=== PATIENT | female | born 1945 ===

== ENCOUNTER 2018-12-11 09:00 | Inpatient (IN) | payer OTHER ==
[~2018-12-11] VITALS: Ht 167.6 cm; Wt 81.6 kg
[2018-12-11] MEDS ORDERED: TOPROL XL25 M1 PO (10:46)
[2018-12-11] MEDS ORDERED: FLECAINIDE ACE100 MG PO (10:47)
[2018-12-11] MEDS ORDERED: CLONAZEPAM1 MG PO (10:47)
[2018-12-11] MEDS ORDERED: CYMBALTA PO (10:48)
[2018-12-11] MEDS ORDERED: LIPITOR PO (10:48)
[2018-12-11] MEDS ORDERED: ZANTAC300 MG PO (10:49)
[2018-12-11] MEDS ORDERED: ASPIRIN81 M1 PO (10:49)
[2018-12-11] MEDS ORDERED: CATAFLAN PO (10:50)
[2018-12-11] MEDS ORDERED: TRAMADOL HCL50 MG PO (10:50)
[2018-12-15] MEDS ORDERED: ATORVASTATIN CA10 MG PO (11:18)
[2018-12-15] MEDS ORDERED: CYMBALTA30 MG PO (11:18)
[2018-12-15] MEDS ORDERED: DICLOFENAC SODI50 MG PO (11:19)
[2018-12-22] MEDS ORDERED: XARELTO10 MG PO (09:54)
[2018-12-22] MEDS ORDERED: BACTRIM DS TAB1 EACH PO (09:54)
[2018-12-22] MEDS ORDERED: OXYC1TAB9 PO (09:54)
[2018-12-22] MEDS ORDERED: INTEGRA PLUS C1 EACH PO (09:54)
== END 2018-12-22 14:22 | DRG 470 ==
LOC: SURG 12-15 05:55 → O/R 12-15 05:55 → SURG 12-15 12:37
PROVIDERS: ADMIT Orthopaedic Surgery Sports Medicine
PROC: 0SRC0J9 Replacement of Right Knee Joint with Synthetic Substitute, Cemented, Open Approach (ICD-10-PCS; principal; 2018-12-15 07:00)
PROC: 3E0F7GC Introduction of Other Therapeutic Substance into Respiratory Tract, Via Natural or Artificial Opening (ICD-10-PCS; 2018-12-18)
PROC: B54BZZZ Ultrasonography of Right Lower Extremity Veins (ICD-10-PCS; 2018-12-19)
DX: M17.11 Unilateral primary osteoarthritis, right knee (principal); J98.11 Atelectasis; R50.82 Postprocedural fever; R09.02 Hypoxemia; I49.8 Other specified cardiac arrhythmias; I10 Essential (primary) hypertension; E78.00 Pure hypercholesterolemia, unspecified; K57.30 Diverticulosis of large intestine without perforation or abscess without bleeding